=== PATIENT | male | born 1955 | race Caucasian/White ===

== ENCOUNTER 2018-10-16 18:26 | Emergency (ER) | payer SELFPAY ==
[2018-10-16] MEDS ORDERED: LORazepam 1MG TABLET ONE (19:41)
== END 2018-10-16 19:11 | disposition left against medical advice (07) ==
LOC: ED 18:30
DX: Z53.21 Procedure and treatment not carried out due to patient leaving prior to being seen by health care provider (principal)

== ENCOUNTER 2018-11-20 01:19 | Emergency (ER) | payer SELFPAY ==
[2018-11-20] MEDS ORDERED: ALBUTEROL/IPRATROPIUM 2.5MG/0.5MG, 3 ML NPPB ONE (01:30)
[2018-11-20] MEDS ORDERED: ALBUTEROL SULFATE 2.5 MG/3 ML NPPB ONE (01:30)
== END 2018-11-20 01:56 | disposition left against medical advice (07) ==
LOC: ED 01:52
DX: R05 Cough (principal); Z53.21 Procedure and treatment not carried out due to patient leaving prior to being seen by health care provider
CPT/HCPCS: 71045; 94640